=== PATIENT | female | born 1995 | race Caucasian/White ===

== ENCOUNTER 2020-11-22 20:01 | Emergency (ER) | payer MEDICAID ==
[~2020-11-22] VITALS: Ht 157.5 cm; Wt 56.4 kg
[2020-11-22] MEDS ORDERED: ONDANSETRON ODT 4 MG PO ONE (22:00)
--- NOTE | 2020-11-22 22:04 | NUR ---
MUSHROOM PACKER: PT. TO ROOM FROM LOBBY AT THIS TIME.
[2020-11-22] MEDS ORDERED: MAALOX/HYOSCYAMINE/LIDOCAINE 45 ML BTL PO ONE (22:30)
[2020-11-22] MEDS ORDERED: PROMETHAZINE 25 MG/ML, 1ML IM ONE (22:30)
[2020-11-22 22:50] LABS: BASOPHILS % (AUTO) 0 % (0-1); EOSINOPHILS % (AUTO) 1 % (1-7); LYMPHOCYTES % (AUTO) 35 % (22-44); MEAN CORPUSCULAR HEMOGLOBIN 32.2 pg (27.0-34.8); MEAN CORPUSCULAR HGB CONC 34.2 g/dL (32.4-35.8); MEAN PLATELET VOLUME 8.7 fL (7.4-10.4); MONOCYTES % (AUTO) 6 % (2-9); NEUTROPHILS % (AUTO) 57 % (42-75); PLATELET COUNT 204 x10^3/uL (130-400); RED BLOOD COUNT 4.11 x10^6/uL (3.82-5.3)
[2020-11-22] MEDS ORDERED: MAALOX/HYOSCYAMINE/LIDOCAINE 45 ML BTL ONE (22:50)
[2020-11-22] MEDS ORDERED: PROMETHAZINE 25 MG/ML, 1ML ONE (22:50)
[2020-11-22 23:04] LABS: ALBUMIN 3.7 g/dL (3.4-5.0); CALCIUM 8.6 mg/dL (8.5-10.1); CHLORIDE 109 mmol/L (98-107)
[2020-11-22 23:08] LABS: ANION GAP 6 mmol/L (5-15); CREATININE 0.64 mg/dL (0.55-1.02); TROPONIN I < 0.015 ng/mL (0.000-0.045)
[2020-11-22 23:09] LABS: ALANINE AMINOTRANSFERASE 28 U/L (12-78); ALKALINE PHOSPHATASE 54 U/L (45-117); BILIRUBIN,TOTAL 0.3 mg/dL (0.2-1.0); TOTAL PROTEIN 7.1 g/dL (6.4-8.2)
[2020-11-23 00:01] VITALS: BP 116/60
[2020-11-23] MEDS ORDERED: HYDROmorphone 2 MG/ML, 1ML ONE (00:11)
[2020-11-23] MEDS ORDERED: HYDROmorphone 1 MG/ML, 1ML INJ IM ONE (00:30)
== END 2020-11-23 01:00 | disposition home or self-care (01) ==
LOC: ED 22:29
DX: K29.00 Acute gastritis without bleeding (principal); R10.13 Epigastric pain; R11.2 Nausea with vomiting, unspecified
CPT/HCPCS: 36415; 74022; 80053; 83690; 83880; 84484; 84703; 85025; 85379; 93005; 96372; 99285; J1170; J2550

== ENCOUNTER 2020-12-07 15:54 | Emergency (ER) | payer MEDICAID ==
--- NOTE | 2020-12-07 16:02 | NUR ---
CALLED FOR TRIAGE, NO ANSWER
--- NOTE | 2020-12-07 16:12 | NUR ---
CALLED FOR TRIAGE, NO ANSWER
--- NOTE | 2020-12-07 16:24 | NUR ---
CALLED FOR TRIAGE, NO ANSWER
== END 2020-12-07 16:26 | disposition left against medical advice (07) ==
LOC: ED 16:00
DX: R10.2 Pelvic and perineal pain (principal); Z53.21 Procedure and treatment not carried out due to patient leaving prior to being seen by health care provider

== ENCOUNTER 2020-12-20 16:33 | Emergency (ER) | payer MEDICAID ==
[~2020-12-20] VITALS: Ht 157.5 cm; Wt 60.0 kg
--- NOTE | 2020-12-20 17:21 | NUR ---
SAP PROJECT MANAGER: PT TO ROOM FROM LOBBY
[2020-12-20 17:35] LABS: BASOPHILS % (AUTO) 0 % (0-1); EOSINOPHILS % (AUTO) 0 % (1-7); LYMPHOCYTES % (AUTO) 22 % (22-44); MEAN CORPUSCULAR HGB CONC 33.9 g/dL (32.4-35.8); MEAN PLATELET VOLUME 8.7 fL (7.4-10.4); MONOCYTES % (AUTO) 4 % (2-9); NEUTROPHILS % (AUTO) 73 % (42-75); PLATELET COUNT 259 x10^3/uL (130-400); RED BLOOD COUNT 4.18 x10^6/uL (3.82-5.3); RED CELL DISTRIBUTION WIDTH 12.3 % (9.6-15.2)
[2020-12-20 17:46] LABS: ALBUMIN 3.5 g/dL (3.4-5.0); ANION GAP 5 mmol/L (5-15); CALCIUM 8.7 mg/dL (8.5-10.1); CHLORIDE 106 mmol/L (98-107); CREATININE 0.85 mg/dL (0.55-1.02)
[2020-12-20] MEDS ORDERED: SODIUM CHLORIDE FLUSH 10ML SYR IVF ONE (18:00)
[2020-12-20] MEDS ORDERED: SODIUM CHLORIDE 0.9% 1,000ML IVBOLUS ONE (18:00)
[2020-12-20] MEDS ORDERED: ONDANSETRON 2MG/ML, 2ML IVPush ONE (18:00)
[2020-12-20] MEDS ORDERED: HYDROmorphone 1 MG/ML, 1ML INJ IV ONE ×3 (18:00→21:00)
[2020-12-20] MEDS ORDERED: ONDANSETRON 2MG/ML, 2ML ONE (18:28)
[2020-12-20] MEDS ORDERED: HYDROmorphone 2 MG/ML, 1ML ONE ×3 (18:28→20:45)
--- NOTE | 2020-12-20 19:09 | NUR ---
FIRST ENCOUNTER WITH PATIENT. PATIENT IS BEING TAKEN TO CT VIA GURNEY WITH WAREHOUSE TEAM MEMBER. TOLERATING WELL. REPORT RECEIVED FROM OFF-GOING RN. WILL FOLLOW UP WITH PATIENT AFTER CT HAS BEEN COMPLETED.
[2020-12-20] MEDS ORDERED: OMNIPAQUE 350 MG/ML, 100ML BOTTLE ONE (19:18)
[2020-12-20 19:26] LABS: MICROSCOPIC NOT IND
[2020-12-20] MEDS ORDERED: DIPHENHYDRAMINE 50 MG/ML, 1ML ONE (19:46)
[2020-12-20] MEDS ORDERED: DIPHENHYDRAMINE 50 MG/ML, 1ML IVPush ONE (20:00)
--- NOTE | 2020-12-20 20:20 | NUR ---
PATIENT GIVEN BEDSIDE COMMODE, UP WITHOUT ASSISTANCE. TOLERATED WELL. VSS. WILL CONTINUE TO MONITOR.
--- NOTE | 2020-12-20 20:40 | NUR ---
SPOKE WITH PATIENT REGARDING PLAN OF CARE. PATIENT VERBALIZED UNDERSTANDING. VSS. PATIENT STATED THAT HER BP WAS ELEVATED PER HER NORMAL.
--- NOTE | 2020-12-20 21:06 | NUR ---
PATIENT GIVEN DOSAGE OF PAIN MEDICATION. VERBALIZED UNDERSTANDING OF 30 MIN WAITING PERIOD. PATIENT WILL BE DISCHARGED AT 2130. PATIENT HAS SAFE RIDE HOME.
--- NOTE | 2020-12-20 21:17 | NUR ---
COVID SWAB COLLECTED AND SENT TO LAB.
[2020-12-20 21:33] VITALS: BP 166/75
--- NOTE | 2020-12-20 21:33 | NUR ---
PATIENT CLEARED FOR DISCHARGE. NO NOTED ACUTE DISTRESS. VSS. PATIENT VERBALIZED UNDERSTANDING OF SELF CARE AND FOLLOW UP CARE AT HOME. PATIENT HAS SAFE RIDE HOME WITH SIGNIFICANT OTHER. PATIENT TAKEN TO DC DESK VIA WHEELCHAIR TO IMPROVE PATIENT SAFETY.
== END 2020-12-20 21:35 | disposition home or self-care (01) ==
LOC: ED 19:51
DX: R10.84 Generalized abdominal pain (principal); Z20.822 Contact with and (suspected) exposure to COVID-19; R50.9 Fever, unspecified; R11.2 Nausea with vomiting, unspecified; R06.02 Shortness of breath; Z90.710 Acquired absence of both cervix and uterus; Z85.41 Personal history of malignant neoplasm of cervix uteri
CPT/HCPCS: 36415; 71045; 74177; 80048; 81003; 82040; 83605; 84145; 85025; 85379; 87040; 93005; 96361; 96374; 96375; 96376; 99285; J1170; J1200; J2405; J7030; Q9967; U0003; U0005

== ENCOUNTER 2020-12-23 14:12 | Emergency (ER) | payer MEDICAID ==
[~2020-12-23] VITALS: Ht 157.5 cm; Wt 50.0 kg
--- NOTE | 2020-12-23 16:35 | NUR ---
port accessed. unable to get any blood. lab called for blood draw
[2020-12-23 16:45] LABS: MICROSCOPIC NOT IND
[2020-12-23 16:46] LABS: BASOPHILS % (AUTO) 0 % (0-1); EOSINOPHILS % (AUTO) 1 % (1-7); LYMPHOCYTES % (AUTO) 22 % (22-44); MEAN CORPUSCULAR HGB CONC 34.3 g/dL (32.4-35.8); MONOCYTES % (AUTO) 5 % (2-9); NEUTROPHILS % (AUTO) 72 % (42-75); PLATELET COUNT 260 x10^3/uL (130-400); RED BLOOD COUNT 4.42 x10^6/uL (3.82-5.3)
[2020-12-23 16:54] LABS: ALBUMIN 3.8 g/dL (3.4-5.0); ANION GAP 5 mmol/L (5-15); CALCIUM 9.1 mg/dL (8.5-10.1); CHLORIDE 103 mmol/L (98-107)
--- NOTE | 2020-12-23 16:58 | NUR ---
MADE RESIDENT AWARE OF PT C/O PAIN AND NAUSEA.
[2020-12-23 17:00] LABS: ALANINE AMINOTRANSFERASE 78 U/L (12-78); ALKALINE PHOSPHATASE 56 U/L (45-117); CREATININE 0.71 mg/dL (0.55-1.02); TOTAL PROTEIN 7.3 g/dL (6.4-8.2)
[2020-12-23 17:05] LABS: BILIRUBIN,TOTAL 0.2 mg/dL (0.2-1.0)
[2020-12-23] MEDS ORDERED: DIPHENHYDRAMINE 50 MG/ML, 1ML ONE (17:23)
[2020-12-23] MEDS ORDERED: PLEASE ENTER WEIGHT MC SCH (18:00)
[2020-12-23] MEDS ORDERED: ONDANSETRON 2MG/ML, 2ML IVPush ONE ×2 (18:00→20:00)
[2020-12-23] MEDS ORDERED: SODIUM CHLORIDE 0.9% 1,000ML IVBOLUS ONE (18:00)
[2020-12-23] MEDS ORDERED: SODIUM CHLORIDE FLUSH 10ML SYR IVF ONE (18:00)
[2020-12-23] MEDS ORDERED: FAMOTIDINE 20 MG/2 ML IVPush ONE (18:00)
[2020-12-23] MEDS ORDERED: FAMOTIDINE 20 MG/2 ML ONE (18:08)
[2020-12-23] MEDS ORDERED: MORPHINE SULFATE 4 MG/ML, 1ML ONE ×2 (18:08→18:52)
[2020-12-23] MEDS ORDERED: ONDANSETRON 2MG/ML, 2ML ONE (18:08)
[2020-12-23] MEDS: MORPHINE SULFATE 4 MG/ML, 1ML IVPush PRN ×2 (18:10→18:55)
--- NOTE | 2020-12-23 18:28 | NUR ---
PT TO CT
[2020-12-23] MEDS ORDERED: OMNIPAQUE 350 MG/ML, 100ML BOTTLE ONE (18:48)
[2020-12-23 18:55] VITALS: BP 95/68
[2020-12-23] MEDS ORDERED: HYDROmorphone 2 MG/ML, 1ML ONE (19:34)
[2020-12-23] MEDS ORDERED: HYDROmorphone 1 MG/ML, 1ML INJ IV ONE (20:00)
== END 2020-12-23 19:49 | disposition home or self-care (01) ==
LOC: ED 17:23
DX: R11.2 Nausea with vomiting, unspecified (principal); B00.89 Other herpesviral infection; F17.210 Nicotine dependence, cigarettes, uncomplicated
CPT/HCPCS: 36415; 74021; 74177; 80053; 81003; 83690; 84703; 85025; 96361; 96374; 96375; 96376; 99285; J1170; J2270; J2405; J7030; Q9967

== ENCOUNTER 2021-01-13 15:26 | Emergency (ER) | payer MEDICAID ==
[~2021-01-13] VITALS: Ht 157.5 cm; Wt 56.0 kg
--- NOTE | 2021-01-13 16:31 | NUR ---
clean catch ua collected from patient who is waiting in [facility]-sent to lab for analysis
[2021-01-13 17:01] LABS: MICROSCOPIC INDICATED
--- NOTE | 2021-01-13 18:41 | NUR ---
ASSIST RN: PT AMBULATED BACK TO ROOM WITH SIGNIFICANT OTHER WITHOUT DIFFICULTY.
--- NOTE | 2021-01-13 18:41 | NUR ---
sound controller: Pt ambulatory to room from lobby at this time.
--- NOTE | 2021-01-13 19:13 | NUR ---
FIRST CONTACT: BLADDER PAIN WITH BLOOD IN URINE X 2 DAYS HX OF CERVICAL CANCER WITH MANY PELVIC SURGERIES INCLUDING PARTIAL HYSTERECTOMY, BLADDER SLING "I THINK I HAVE A CYST REPURTURING AND MY BLADDER SLING IS BEING REJECTED." PT ATTACHED TO MONITORS. VSS. POSTIONED TO COMFORT. NADN. Denney. CHEST PORT ACESSED.
[2021-01-13 19:36] LABS: BASOPHILS % (AUTO) 0 % (0-1); EOSINOPHILS % (AUTO) 1 % (1-7); LYMPHOCYTES % (AUTO) 33 % (22-44); MEAN CORPUSCULAR HEMOGLOBIN 32.6 pg (27.0-34.8); MEAN CORPUSCULAR HGB CONC 34.3 g/dL (32.4-35.8); MEAN PLATELET VOLUME 8.2 fL (7.4-10.4); MONOCYTES % (AUTO) 9 % (2-9); NEUTROPHILS % (AUTO) 57 % (42-75); PLATELET COUNT 228 x10^3/uL (130-400); RED BLOOD COUNT 4.06 x10^6/uL (3.82-5.3); RED CELL DISTRIBUTION WIDTH 12.6 % (9.6-15.2)
[2021-01-13 19:47] LABS: ALANINE AMINOTRANSFERASE 24 U/L (12-78); ANION GAP 6 mmol/L (5-15); CHLORIDE 108 mmol/L (98-107); CREATININE 0.74 mg/dL (0.55-1.02)
[2021-01-13 19:49] LABS: ALKALINE PHOSPHATASE 54 U/L (45-117); BILIRUBIN,TOTAL 0.2 mg/dL (0.2-1.0); TOTAL PROTEIN 7.3 g/dL (6.4-8.2)
[2021-01-13] MEDS ORDERED: HYDROmorphone 2 MG/ML, 1ML ONE ×2 (19:55→21:52)
[2021-01-13] MEDS ORDERED: HYDROmorphone 2 MG/ML, 1ML IV ONE ×2 (20:00→22:00)
[2021-01-13] MEDS ORDERED: ONDANSETRON 2MG/ML, 2ML IVPush ONE (20:00)
[2021-01-13] MEDS ORDERED: ONDANSETRON 2MG/ML, 2ML ONE (20:03)
[2021-01-13 20:40] VITALS: BP 111/67
--- NOTE | 2021-01-13 20:40 | NUR ---
PT RESTING IN BED. MEDICATED PER EMAR. VSS. TO HAVE US
--- NOTE | 2021-01-13 20:57 | NUR ---
REPORT TO MELVIN ARECHIGA
[2021-01-13] MEDS ORDERED: FLUCONAZOLE 100 MG TABLET ONE (21:51)
[2021-01-13] MEDS ORDERED: HYDROmorphone 1 MG/ML, 1ML INJ IV ONE (22:00)
[2021-01-13] MEDS ORDERED: FLUCONAZOLE 50 MG TABLET PO ONE (22:00)
--- NOTE | 2021-01-13 22:21 | NUR ---
PORT DEACCESSED WITH STERAL TECHNIQUE. PATIENT AMBULATES TO BATHROOM AND HAS FAMILY AT BEDSIDE TO [employer] [facility] HOME.
== END 2021-01-13 22:24 | disposition home or self-care (01) ==
LOC: ED 20:11
DX: R30.0 Dysuria (principal); R10.30 Lower abdominal pain, unspecified; R10.2 Pelvic and perineal pain; N93.9 Abnormal uterine and vaginal bleeding, unspecified; F17.200 Nicotine dependence, unspecified, uncomplicated; Z90.89 Acquired absence of other organs; Z90.710 Acquired absence of both cervix and uterus; Z85.89 Personal history of malignant neoplasm of other organs and systems
CPT/HCPCS: 36415; 76830; 80053; 81001; 85025; 96374; 96375; 96376; 99284; J1170; J2405

== ENCOUNTER 2021-01-18 07:45 | Emergency (ER) | payer MEDICAID ==
[~2021-01-18] VITALS: Ht 157.5 cm; Wt 61.7 kg
--- NOTE | 2021-01-18 08:23 | NUR ---
PT TO ROOM, CONNECTED TO ALL MONITORS. PT STATES SHE IS PENDING ANOTHER ABD SURGERY. SHE BELIEVES HER INFECTED TATTOO HAS AXACERBATED HER ABD S/S. PT STATES SHE HAS LOSE OF BLADDER CONTROL. SHE STATES SHE PASSED OUT TWICE YESTERDAY AND WAS TOLD THAT SHE HAD A SEIZURE DURING THE SECOND LOC. PT DENIES ANY SEIZURE DISORDERS.
[2021-01-18] MEDS ORDERED: ONDANSETRON ODT 4 MG ONE (08:56)
[2021-01-18] MEDS ORDERED: KETOROLAC 30 MG/1 ML ONE (08:56)
[2021-01-18] MEDS ORDERED: ONDANSETRON ODT 4 MG PO ONE (09:00)
[2021-01-18] MEDS ORDERED: KETOROLAC 30 MG/1 ML IM ONE (09:00)
[2021-01-18 09:11] VITALS: BP 102/64
--- NOTE | 2021-01-18 09:12 | NUR ---
PT MEDICATED PER ORDER. PT PROVIDED URINE SAMPLE, PT URINE WAS RED, PT HS HX OF BLADDER SURGERIES. PT STATED SHE WILL NEED SOMETHING STRONGER THAN TORADOL BECAUSE SHE "TAKES SOME PRETTY HARDCORE PAIN MEDS."
[2021-01-18 09:18] LABS: BASOPHILS % (AUTO) 1 % (0-1); EOSINOPHILS % (AUTO) 1 % (1-7); LYMPHOCYTES % (AUTO) 33 % (22-44); MEAN CORPUSCULAR HEMOGLOBIN 32.2 pg (27.0-34.8); MEAN CORPUSCULAR HGB CONC 34.3 g/dL (32.4-35.8); MEAN PLATELET VOLUME 8.3 fL (7.4-10.4); MONOCYTES % (AUTO) 10 % (2-9); NEUTROPHILS % (AUTO) 55 % (42-75); PLATELET COUNT 204 x10^3/uL (130-400); RED BLOOD COUNT 4.05 x10^6/uL (3.82-5.3); RED CELL DISTRIBUTION WIDTH 12.6 % (9.6-15.2)
[2021-01-18 09:20] LABS: MICROSCOPIC INDICATED
[2021-01-18 09:28] LABS: ALBUMIN 3.7 g/dL (3.4-5.0); ANION GAP 4 mmol/L (5-15); CALCIUM 8.5 mg/dL (8.5-10.1); CHLORIDE 108 mmol/L (98-107)
[2021-01-18] MEDS ORDERED: ACETAMINOPHEN 500 MG TABLET PO ONE (10:30)
[2021-01-18] MEDS ORDERED: ACETAMINOPHEN 500 MG TABLET ONE (10:33)
== END 2021-01-18 10:46 | disposition home or self-care (01) ==
LOC: ED 07:49
DX: R11.2 Nausea with vomiting, unspecified (principal); L73.9 Follicular disorder, unspecified; R21 Rash and other nonspecific skin eruption
CPT/HCPCS: 36415; 80048; 81001; 82040; 85025; 87086; 96372; 99283; J1885; Q0162